=== PATIENT | male | born 1960 | race Caucasian/White ===

== ENCOUNTER 2020-11-05 13:07 | Emergency (ER) | payer OTHER, SELFPAY ==
[2020-11-05 13:20] VITALS: BP 141/89; PULSE 89; RESP 20; TEMP 36.9; O2SAT 98; BMI 26.6
--- NOTE | 2020-11-05 13:41 | HMH.EDUTC ---
[facility] Disposition Clinical Impression: Exposure to COVID-19 virus Disposition: Home, Self-Care Condition on Discharge: Good Instructions: DI for COVID-19 (Suspected or Confirmed ), Coronavirus Disease 2019, COVID-19: Testing and Tracing, Preventing the Spread of Coronavirus Discharge Instructions Additional Instructions: *Monitor Temp, Over the counter Motrin or Tylenol as directed/as needed Tylenol every 4 hours and Motrin every 6 hours (as long as your family doctor has told you that you can take it) for fever or pain. and straight to ER if unable to lower temp less than 101.0 after medication given Follow up IMMEDIATELY for new or worsening symptoms or no Noticeable improvement over the next 48-72 hours. 911 for difficulty breathing or swallowing You were tested for today for COVID19 your test result should be back in the next 24-48 hours, you may call to the [facility] to see if your test results are back in the next 48 hours [phone] [facility] hours are 9am-9pm You was given a handout with instructions for Self Quarantine and Self isolation for while you wait on test results and what to do if they are positive If you are positive the Health Dept will be contacting you also Referrals: PCP,No [Primary Care Provider] - As needed Forms: Work/School Release Time of Disposition: 13:42 Medical Decision Making - Levi Inquiry Pt receiving controlled substance: No Levi was queried for this patient: No Vital Signs: 11/05/20 13:20 Temperature 98.4 F Temperature Source Oral Pulse Rate [Right Brachial] 89 Respiratory Rate 20 Blood Pressure [Right Arm] 141/89 H Blood Pressure Mean [Right Arm] 106 Blood Pressure Source [Right Arm] Automatic Cuff Blood Pressure Position [Right Arm] Sitting 02 Sat by Pulse Oximetry 98 Oxygen Delivery Method Room Air Orders (Tests/Meds): ORDERS Category Date Time Status Covid-19 Nasal PCR Sendout P&C Stat Lab 11/05/20 13:30 Received [facility] HPI - General Stated complaint: covid exposure Time Seen by Provider: 11/05/20 13:41 Mode of Arrival: Ambulatory Source of Information: Patient Limitations: No Limitations Description of Symptoms (Recalled from Triage Doc. by RN): PATIENT REQUESTING COVID TEST D/T EXPOSURE; DENIES SYMPTOMS HEENT Symptoms (Recalled from RN notes): No Resp Symptoms (Recalled from RN notes): No Skin Symptoms (Recalled from RN notes): No MS Symptoms (Recalled from RN notes): No Functional Status (Recalled from RN notes): WNL - History of Present Illness Provider Complaint: Patient states that he was recently around someone that has since tested positive for COVID State that he is not having any symptoms but do to exposure he had to get tested for work - Related Data Allergies Allergy/AdvReac Type Severity Reaction Status Date / Time Penicillins Allergy Verified 11/05/20 13:38 - Worker's Comp Is this a Worker's Comp case?: No [facility] History - Hepatitis A Screen Drug use history?: No High risk sexual behaviors?: No History of sexually transmitted infection?: No Currently employed?: No Childcare worker?: No Do you have indoor plumbing?: Yes Do you have electricity?: Yes Attestation statement:: This patient has been screened for Hepatitis A risk factors. I have reviewed the patient's past medical history: Yes - Social History Alcohol Intake: never Occupational Status: other ROS Obtained: Yes All systems reviewed & no additional complaints, Yes Systems reviewed as appropriate & no additional complaints - Constitutional Constitutional: Reports system reviewed and no additional complaints, except as docu, Denies body ache, Denies chills, Denies fever(s), Denies headache(s) - ENT Ears, Nose, Mouth, and Throat: Reports system reviewed and no additional complaints, except as docu, Denies otalgia, Denies sinus pain, Denies sinus pressure, Denies sore throat - Cardiovascular Cardiovascular: Reports system reviewed and no additional complaints, except
[2020-11-05 13:49] VITALS: BP 141/89; PULSE 89; RESP 20; TEMP 36.9; O2SAT 98
[2020-11-06 10:58] LABS: Covid-19 Nasal PCR Sendout P&C Negative
== END 2020-11-05 13:53 | disposition home or self-care (01) ==
PROVIDERS: Emergency Provider Nurse Practitioner
DX: Z20.828 Contact with and (suspected) exposure to other viral communicable diseases (principal)
CPT/HCPCS: 99201; U0004

== ENCOUNTER → 2021-09-14 21:56 | Outpatient (CLI) | payer OTHER, SELFPAY | PROVIDERS: Visit Provider Nurse Practitioner Family | DX: Z20.822 Contact with and (suspected) exposure to COVID-19 (principal); U07.1 COVID-19 | CPT/HCPCS: C9803; U0003; U0005 ==

== ENCOUNTER → 2022-05-31 06:01 | Outpatient (CLI) | payer OTHER, SELFPAY ==
--- NOTE | 2022-05-31 06:02 | CA_ITS ---
APPROVED REPORT EXAM: Comprehensive 2D, Doppler, and color-flow Echocardiogram Hydraulic Technician: Amanda Chandler RVT Ht: 5 ft 7 in Wt: 172lbs BSA: 1.90 BP: 174/117 mmHg Indications: PRE-OP,HTN,SMOKER,HLD 2D Dimensions LVOT 2.00 cm (M/F) 1.5-2.5 LA Volume 16.70 mL LA Volume Index 8.83 mL/m2 (M/F) 16-34 M-Mode Dimensions RVDd 3.45 cm (0.9-2.6) LA Diam 3.81 cm (1.9-4.0) LVDd 3.57 cm (3.5-5.7) Ao Diam 3.13 cm (2.0-3.7) LVDs 2.66 cm (3.5-5.7) IVSd 0.72 cm (0.6-1.1) PWd 0.83 cm (0.6-1.1) EF (Teich) 51.20% FS 25.50% EDV (Teich) 53.30 mL TAPSE 2.22 (<1.7) ESV (Teich) 26.00 mL LV Diastology E Decel Time 200.00 (160-240 msec) E/A Ratio 0.7 MED E' 6.50 (< 7 cm/sec) E'/MED E' Ratio 8.43 (>14) LAT E' 10.80 (<10 cm/sec) E/LAT E' Ratio 5.07 (>14) Aortic Valve AO Peak GR. 5.00 mmHg Mitral Valve MV E Max Raghu. 55.00 (40-130 cm/s) MV A Velocity 81.00 (40-130 cm/s) E/A Ratio 0.68 MV Decel. Time 200.00 (160-240 ms) MV PHT 59.00 ms Pulmonary Valve PV Peak Velocity 65.00 (50-150 cm/s) Left Ventricle Technically difficult study because of the patient factors and poor acoustic windows. Left atrium is mildly enlarged left ventricle is normal size mild concentric left ventricular hypertrophy, estimated ejection fraction 50% with no regional wall motion abnormality, grade 1 diastolic dysfunction seen without tissue Doppler evidence of raise left atrial pressure. Right Ventricle Right atrium and right ventricle are normal size and contractility. Aortic Valve Aortic valve is minimally thickened and fibrosed there is no aortic stenosis or aortic insufficiency. Mitral Valve Mitral valve grossly normal, there is trace mitral regurgitation. Tricuspid Valve Tricuspid grossly normal, there is trace tricuspid regurgitation, tricuspid regurgitation jet velocity is inadequate for calculation of the right ventricular systolic pressure. Pulmonic Valve Pulmonic valve is poorly visualized. Great Vessels Aortic root is normal size. Inferior vena cava is poorly visualized. Pericardium No significant pericardial effusion noted. Conclusion 1. Mild biatrial alignment, normal left ventricular size, mild concentric left ventricular hypertrophy, estimated ejection fraction 50% with no regional wall motion abnormality, grade 1 diastolic dysfunction seen without tissue Doppler evidence of raise left atrial pressure. 2. Trace mitral and tricuspid regurgitation. 3. No significant pericardial effusion. 4. Inferior vena cava is poorly visualized. Electronically signed by : Andrzej Hill MD 05/31/2022 20:01:05
--- NOTE | 2022-05-31 06:02 | CA_ITS ---
APPROVED REPORT Exam: Pharmacologic Technologist: Lily Pichardo, Ht: 5 ft 7 in Wt: 172 lbs BSA: 1.90 m2 HR: 74 bpm BP: 126/90 mmHg Medical History Medications: Aspirin,,,,, Stress Test Details Test: LEXISCAN Reason for pharmacologic stress test: physical limitation. HR Resting HR: 77 bpm Max Heart Rate (APMHR): 161.943684 bpm Max HR Achieved: 105 bpm Target HR (85% APMHR): 136.718485 bpm % of APMHR: 65.22 Recovery HR: 83 bpm BP Resting BP: 126.0/90.0 mmHg Max BP: 186.0/108.0 mmHg Recovery BP: 171.0/87.0 mmHg ECG Resting ECG: NSR Clinical Reason for Termination: Completed Protocol Exercise duration: 04:02 min Highest Stage Achieved: Exercise capacity: 1.0 METs Stress ECG Conclusion Symptoms: No CP Arrhythmias/Ectopy: None ST-T Changes: <1.5mm ST Segment changes Conclusion: Non-Diagnostic Test Summary RECOVERY 03:00 . . 80 . 171/ 87 . . REST 12:50 . . 77 . 126/ 90 . . Stage 1 01:00 . . 100 . . . . Stage 2 01:00 . . 99 . . . . Stage 3 01:00 . . 104 . 186/108 . . Stage 4 01:00 . . 91 . 165/ 96 . . Stage 4 01:02 . . 91 . 165/ 96 . Stop exercise at 04:02 RECOVERY 01:00 . . 91 . . . . RECOVERY 02:00 . . 85 . 167/ 94 . . RECOVERY 03:00 . . 80 . 171/ 87 . . RECOVERY 03:55 . . 0 . 171/ 87 . . Electronically signed by : Andrzej Hill MD 05/31/2022 18:27:12
--- NOTE | 2022-05-31 06:02 | NM_ITS ---
APPROVED REPORT Exam: Nuclear Stress Test Indication: short of breath Patient Location: Outpatient Stress Tech: Lily Sharpe [place] Tech:RAFY Aguirre RT(R)(N) Ht: 5 ft 6 in Wt: 180 lbs HR: 77 bpm BP: 126/90 mmHg BSA: 1.91 m2 TID: 0.92 BMI: 29.0 History: short of breath Procedure: Patient received a 0.4 mg of intravenous Lexiscan, resting heart rate 77 bpm, resting blood pressure 126/90 mmHg, with Lexiscan maximum heart rate achived was 105 bpm which is Less than 85 % of the maximum predicted heart rate and blood pressure was 186/108 mmHg. With Lexiscan, patient denied any complaint of chest pain. Electrocardiogram Resting electrocardiogram shows sinus rhythm, with Lexiscan less than 1.[address] segment depression noted from the baseline EKG. The EKG portion of the Lexiscan is nondiagnostic. Cardiac Stress and Resting SPECT Images: Cardiac Stress and Resting SPECT images were obtained using technetium 99m Myoview 30.7 mCi stress and 10.71 mCi at rest. Gated SPECT analysis of segmental wall motion and calculation of the ejection fraction also done. Prone images were also obtained. Cardiac stress and rest SPECT images show uniform myocardial activity without segmental perfusion abnormality, computer derived ejection fraction is 52% with no regional wall motion abnormality, right ventricle is normal size and contractility. Conclusion: 1. The EKG portion of the Lexiscan is nondiagnostic. 2. No scintigraphic evidence of reversible ischemia seen, computer derived ejection fraction 52% with no regional wall motion abnormality, right ventricle is normal size and contractility. 3. Normal Lexiscan Myoview study. Electronically signed by : Andrzej Hill MD 05/31/2022 18:30:11
== END ==
LOC: RAD 06:02
PROVIDERS: PCP Emergency Medicine; Visit Provider Nurse Practitioner Family
DX: Z01.810 Encounter for preprocedural cardiovascular examination (principal); R06.00 Dyspnea, unspecified
CPT/HCPCS: 78452; 93017; 93306; A9502; J2785

== ENCOUNTER → 2022-07-31 09:01 | Outpatient (CLI) | payer OTHER, SELFPAY ==
[2022-07-31 09:48] LABS: Basophils # 0.1 K/mm3 (0-0.2); Basophils % 1.5 % (0.1-2.0); Eosinophils # 0.5 K/mm3 (0.0-0.4); Eosinophils % 5.1 % (0.1-12.0); Hematocrit 53.1 % (42.0-52.0); Hemoglobin 17.3 g/dL (14.1-18.0); Lymphocytes # 2.3 K/mm3 (0.7-4.5); Lymphocytes % 25.9 % (10-50); Mean Corpuscular HGB Conc 32.5 g/dL (31.8-35.4); Mean Corpuscular Hemoglobin 31.9 pg (27.0-31.2); Mean Platelet Volume 7.8 fl (7.4-10.4); Monocytes # 0.7 K/mm3 (0.1-1.0); Monocytes % 7.9 % (1.7-9.3); Neutrophils # 5.2 K/mm3 (1.8-7.8); Neutrophils % 59.5 % (37.0-80.0); Platelet Count 296 K/mm3 (142-424); Red Blood Count 5.41 M/mm3 (4.60-6.20); Red Cell Distribution Width 13.6 % (11.5-17.5); White Blood Count 8.7 K/mm3 (4.8-10.8)
[2022-07-31 10:12] LABS: Anion Gap 14.3 mEq/L (5-15); Blood Urea Nitrogen 20 mg/dl (9-20); Calcium 8.8 mg/dl (8.4-10.2); Carbon Dioxide 26 mmol/L (22.0-30.0); Chloride 103 mmol/L (98-107); Estimated Glomerular Filt Rate 76 ml/min (>60); GFR (African American) 93 ML/MIN (>60); Glucose 85 mg/dl (74-100); Potassium 4.3 mmoL/L (3.5-5.1); Sodium 139 mmol/L (136-145)
== END ==
LOC: LAB 09:02
PROVIDERS: Visit Provider Surgery
DX: U07.1 COVID-19 (principal); K40.90 Unilateral inguinal hernia, without obstruction or gangrene, not specified as recurrent
CPT/HCPCS: 36415; 80048; 85025; C9803; U0003; U0005

== ENCOUNTER 2022-09-27 07:38 | Day surgery (SDC) | payer OTHER, SELFPAY ==
[2022-09-23 11:45] VITALS: BMI 26.9
[2022-09-27] VITALS (10 sets, daily range): BP systolic 100–163; BP diastolic 68–94; PULSE 74–100; RESP 11–18; TEMP 36.5–43; O2SAT 93–98
[2022-09-27 08:40] LABS: Basophils # 0.1 K/mm3 (0-0.2); Basophils % 1.4 % (0.1-2.0); Eosinophils # 0.3 K/mm3 (0.0-0.4); Eosinophils % 2.4 % (0.1-12.0); Lymphocytes # 2.4 K/mm3 (0.7-4.5); Lymphocytes % 23.4 % (10-50); Mean Corpuscular HGB Conc 32.8 g/dL (31.8-35.4); Mean Corpuscular Hemoglobin 31.8 pg (27.0-31.2); Mean Corpuscular Volume 96.9 fl (80-94); Mean Platelet Volume 7.5 fl (7.4-10.4); Monocytes # 0.6 K/mm3 (0.1-1.0); Monocytes % 5.3 % (1.7-9.3); Neutrophils % 67.6 % (37.0-80.0); Platelet Count 278 K/mm3 (142-424); Red Blood Count 5.99 M/mm3 (4.60-6.20); Red Cell Distribution Width 13.7 % (11.5-17.5); White Blood Count 10.4 K/mm3 (4.8-10.8)
[2022-09-27 08:44] LABS: Hemoglobin 19.2 g/dL (14.1-18.0)
[2022-09-27 08:50] LABS: Chloride 104 mmol/L (98-107); Potassium 4.1 mmoL/L (3.5-5.1); Sodium 141 mmol/L (136-145)
[2022-09-27 08:53] LABS: Anion Gap 15.1 mEq/L (5-15); Blood Urea Nitrogen 18 mg/dl (9-20); Calcium 9.6 mg/dl (8.4-10.2); Carbon Dioxide 26 mmol/L (22.0-30.0); Creatinine Clearance Estimated 98 mL/min (50-200); Estimated Glomerular Filt Rate 86 ml/min (>60); GFR (African American) 105 ML/MIN (>60); Glucose 86 mg/dl (74-100)
--- NOTE | 2022-09-27 10:12 | P.PN_ITS ---
[facility] Medical History Anxiety Surgical History History of neck surgery History of tonsillectomy Family History Father Prostate cancer Throat cancer Social History Smoking Status: Current every day smoker tobacco type: cigarettes packs per day: 1 alcohol intake: never current occupational status: other Travel in the last 8 weeks: None [facility] Anesthesia Checklist Patient Identification Patient Identification: Arm Band and Verbal (Name & ) Structural Data Admitted From: Home Planned Operative Procedure/s: Bilateral Laparascopic Cholecystectomy Consent for Planned Operative Procedure(s) Verified: Yes Verified Documents: Surgical Consent NPO Status Verified Time NPO: 19:00 Additional verifications Anesthesia Reactions: No Hx Blood Transfusions: No Blood Transfusion Reaction: No Airway Assessment C-Spine Mobility Assessed: Yes TMJ Mobility Assessed: Yes Dentition: Poor Dentition Neurological Assessment Level of Consciousness: Awake, Alert and Appropriate Anesthesia Plan Anesthesia Risk discussed: Yes ASA Class: III Anesthesia Type: General Preoperative Comments Pre-Operative Comments:
--- NOTE | 2022-09-27 12:20 | EXP.OP.NOTE ---
Date of procedure: 09/27/22 Pre-op Diagnosis:: Bilateral inguinal hernia Post-op Diagnosis:: Same Procedure performed:: Bilateral laparoscopic inguinal hernia repair (TEPP) with placement of large Bard 3D max mesh bilaterally Surgeon:: Rafael Guy MD MILLER KILN DRIED SALT:: Clif Krause Anesthesia: EDIN Estimated blood loss (mL): 25 Clinical Note:: Patient presents for bilateral inguinal hernia repair.? He is a 61-year-old who was referred by Brenda Saravia and Dr. Griffin's office for hernia .? I initially saw him in February of this year.? He does factory work.? He noticed a bulge in the right groin area which had increased in size.? At that time patient was actually noted to have bilateral inguinal hernias with the right side being markedly larger and more symptomatic than the left.? I had tentatively consider laparoscopic repair.? Ultimately did have the patient undergo cardiology risk assessment and he has been deemed a low and acceptable risk to proceed with surgery.? He has had increasing symptomatology in the right side.? He is recently developed some left inguinal discomfort as well. Arrangements were made for attempt at laparoscopic bilateral repair possible open. Operative findings:: Patient had both indirect indirect hernias bilaterally with the right side being larger than the left. The direct component on the left was actually chronically incarcerated. Operative note:: Patient was taken to the operating room. He was given preoperative intravenous antibiotics. In the operating room he was placed in a supine position. General anesthesia was induced. William catheter was placed. Abdomen and perineum were prepped and draped in the standard surgical fashion. Subumbilical skin incision was made. Dissection was carried down to the anterior rectus fascia which was incised to the right of the linea alba. Rectus muscles were retracted laterally. Preperitoneal space was entered. Dissecting balloon trocar was inserted. Preperitoneal space was dissected free. Dissecting balloon trocar was then removed and replaced with the structural balloon trocar. CO2 pneumo preperitoneum was achieved to 15 mmHg. A couple of 5 mm trochars were inserted in the midline inferior to the umbilicus. Attention was first turned to dissection on the right side. On the right side landmarks were clearly identified. Manuelito's ligament was identified as were the inferior epigastric vessels and cord structures. There was herniated preperitoneal fat with a moderately large direct hernia. Dissection was carried out around the cord structures and there was noted to be hernia sac which was able to be dissected free from the cord after reduction. There was unavoidable small rent in the peritoneum and this was closed with 0 PDS Endoloop. Dissection was carried out laterally to allow for mesh placement. After dissection was performed on the right attention was turned to dissection on the left. This was much more difficult. Manuelito's ligament was identified. Identification of inferior epigastric vessels and cord structures was initially somewhat difficult. Ultimately the cord structures were identified and dissected free from the adherent inferior epigastric vessels and herniated tissue. There was some intra-abdominal gas and a left subcostal 5 mm trocar was inserted to allow for release of intra-abdominal gas. The reason the anatomy was difficult to discern was that there were preperitoneal tissues herniated along with the cord but as a direct hernia where they were chronically incarcerated. Reduction of the hernia contents was somewhat difficult. Ultimately this was able to be performed and dissection was carried out laterally to allow for mesh placement. Once the preperitoneal space was fully dissected out and all landmarks including inferior epigastric vessels, cord structures, iliac vessels were clearly identified a large sized Bard 3D max mesh dedicated for the left side was inserted into the
--- NOTE | 2022-09-27 12:27 | XR_ITS ---
FINAL REPORT CLINICAL HISTORY: Crepitus FINDINGS: The heart size is normal. The mediastinum is within normal limits. There is mild bibasilar opacity. There is no pleural effusion. There is no pneumothorax. The bony thorax is intact. There is diffuse bilateral subcutaneous air of uncertain etiology. IMPRESSION: Mild bibasilar opacity could represent atelectasis or pneumonia. Subcutaneous air bilaterally of uncertain etiology. No pneumothorax. Reviewed, Interpreted and Dictated by Rafael Parson III, MD Transcribed by Chava Wade Authenticated and [facility]
--- NOTE | 2022-09-27 12:40 | SUR.PHASEI ---
1225-upon entering pacu, lung sounds noted to be expriatory wheezing and fine crackles to patricia upper chest, crepitus of chest noted, APPRENTICE COSMETOLOGIST and MD notified and aware, chest xray ordered at this time per MARK Cavazos, no other distress noted, vss, pt's o2 sats stable on 3l/nc, will continue to monitor 1228-radiology at bedside
--- NOTE | 2022-09-27 12:53 | PC.NURSE ---
1243-crepitus to chest improving, fine crackles still noted on auscultation, expiratory wheezing improved, pt's o2 sats stable on room air, denies soa or difficulty breathing, non-labored breathing noted, notified MD at bedside, awaiting chest xray results, will continue to monitor
--- NOTE | 2022-09-27 13:02 | PC.NURSE ---
1257-detailed report given at bedside to MARICRUZ De La Rosa [id number]-pt transported to post op via stretcher w/patricia rails up and left in care of MARICRUZ De La Rosa with bed locked in lowest position, vss, pt stable
--- NOTE | 2022-09-27 13:11 | EXP.ANES.II ---
[facility] Anesthesia Record Part II Anesthesia Record Part II Discharge Time: 12:53 Destination: Surgical Day Care (OP Surgery) PACU nurse assessment reviewed?: Yes Patient Condition:: Good Anesthesia Complications:: None Swallowing reflex intact?: Yes Cyanosis?: No Blood Pressure: 150/87 Pulse Rate: 90 Temperature: 97.7 F Mental Status: Alert & Oriented Pain level:: 0 Nausea and/or vomitting:: None Intake, IV Amount: 0
--- NOTE | 2022-09-27 14:08 | SUR.PHASEII ---
Per Shekhar Krause, [employer]LINDER STEAMER- pt is ok to be discharged from the post-op area
[2022-09-27 16:03] LABS: Microscopic,Cath URINE MICROSCOPIC (MICROSCOPIC)
[2022-09-27 17:26] LABS: Appearance,Urine/Cath CLEAR (Clear); Bilirubin,Cath Negative (Negative); Blood, Urine/Cath TRACE-I (Negative); Color,Urine/Cath YELLOW (Yellow); Glucose,Urine/Cath (UA) Negative (Negative); Ketones,Urine/Cath Negative (Negative); Leukocyte Esterase,Cath Negative (Negative); Nitrate,Cath Negative (Negative); Protein,Urine/Cath Negative (Negative); Specific Gravity, Urine/Cath 1.025 (1.005-1.030); Urobilinogen,Cath 0.2 EU/dl (0.2)
[2022-09-27 19:11] LABS: WBC,Urine/Cath Occasional #/hpf (0-3)
== END 2022-09-27 14:08 | disposition home or self-care (01) ==
PROVIDERS: Visit Provider Surgery
PROC: (CPT 49650; principal; 2022-09-27 09:15)
DX: K40.20 Bilateral inguinal hernia, without obstruction or gangrene, not specified as recurrent (principal); Z72.0 Tobacco use; Z79.899 Other long term (current) drug therapy
CPT/HCPCS: 49650; 71045; 80048; 81001; 85025; 96374; C1781; J2405